=== PATIENT | female | born 1950 | race African-American/Black ===

== ENCOUNTER 2019-10-09 00:39 | Emergency (ER) | payer OTHER, MEDICARE ==
[~2019-10-09] VITALS: Ht 160 cm; Wt 81.6 kg
[2019-10-09 00:47] VITALS: Ht 160 cm; Wt 81.6 kg
[2019-10-09 01:22] LABS: BASOPHIL % 0.2 % (0-2); PLATELET COUNT 277 x10^3mcL (130-400)
[2019-10-09 01:36] VITALS: BP 182/80
[2019-10-09 01:37] LABS: CALCIUM 8.7 mg/dL (8.5-10.1); CARBON DIOXIDE 26.5 mmol/L (21-32); CHLORIDE SERUM 105 mmol/L (98-107); CREATININE SERUM 0.9 mg/dL (0.6-1.0); GFR1 > 60 mL/min; GLUCOSE SERUM 169 mg/dL (74-106); POTASSIUM SERUM 3.3 mmol/L (3.5-5.1); SODIUM SERUM 142 mmol/L (136-145)
[2019-10-09 01:41] LABS: ALBUMIN 3.6 g/dL (3.4-5.0); ALKALINE PHOSPHATASE 121 U/L (46-116); ALT/SGPT 28 U/L (14-59); AST/SGOT 26 U/L (15-37); BILIRUBIN TOTAL 0.5 mg/dL (0.20-1.00); TOTAL PROTEIN, SERUM 8.1 g/dL (6.4-8.2)
== END 2019-10-09 01:36 | disposition short-term general hospital (02) ==
LOC: ED 00:39
PROVIDERS: Emergency Medicine
DX: I21.9 Acute myocardial infarction, unspecified (principal); I10 Essential (primary) hypertension; E11.9 Type 2 diabetes mellitus without complications; Z95.5 Presence of coronary angioplasty implant and graft; Z85.3 Personal history of malignant neoplasm of breast
CPT/HCPCS: 83880; J1644; J2270; J2405; J7030; Q0092